=== PATIENT | female | born 1955 | race Caucasian/White ===

== ENCOUNTER 2020-04-12 14:25 | Inpatient (IN) | payer OTHER ==
[~2020-04-12] VITALS: Ht 165.1 cm; Wt 88.0 kg
[2020-04-12] MEDS ORDERED: ALDACTONE25 MG (15:29)
[2020-04-12] MEDS ORDERED: SYNTHROID125 MCG (15:29)
[2020-04-12] MEDS ORDERED: PLAVIX75 MG (15:29)
[2020-04-12] MEDS ORDERED: LIPITOR40 MG (15:30)
[2020-04-12] MEDS ORDERED: ECOTRIN81 MG (15:30)
[2020-04-12] MEDS ORDERED: DIOVAN160 M1 (15:30)
[2020-04-12] MEDS ORDERED: CARVEDILOL25 MG (15:30)
[2020-04-12] MEDS ORDERED: APRESOLINE 10MG10 MG (15:31)
[2020-04-12] MEDS ORDERED: METFORMIN HCL500 M3 (15:31)
== END 2020-04-20 22:29 | disposition home or self-care (01) | DRG 638 ==
LOC: ER 14:25 → MEDJ 04-13 14:41
PROVIDERS: ADMIT Internal Medicine; ATTEND Internal Medicine
DX: E11.00 Type 2 diabetes mellitus with hyperosmolarity without nonketotic hyperglycemic-hyperosmolar coma (NKHHC) (principal); I50.22 Chronic systolic (congestive) heart failure; N17.8 Other acute kidney failure; I25.10 Atherosclerotic heart disease of native coronary artery without angina pectoris; N18.9 Chronic kidney disease, unspecified; E86.0 Dehydration; E11.21 Type 2 diabetes mellitus with diabetic nephropathy; I11.0 Hypertensive heart disease with heart failure; Z95.810 Presence of automatic (implantable) cardiac defibrillator; Z79.4 Long term (current) use of insulin

== ENCOUNTER 2024-03-04 05:32 | Inpatient (IN) | payer OTHER ==
[~2024-03-04] VITALS: Ht 165.1 cm; Wt 97.5 kg
[~2024-03-04 05:32] MED LIST: ALDACTONE25 MG; APRESOLINE 10MG10 MG; CARVEDILOL25 MG; DIOVAN160 M1; ECOTRIN81 MG; LIPITOR40 MG; METFORMIN HCL500 M3; PLAVIX75 MG; SYNTHROID125 MCG
[2024-03-04] MEDS ORDERED: SPIRONOLACTONE25 MG PO (06:01)
[2024-03-04] MEDS ORDERED: LASIX20 MG PO (06:01)
[2024-03-04] MEDS ORDERED: LANTUS SOL100 UNIT/1 SUBCUTANEO (06:01)
[2024-03-04] MEDS ORDERED: HUMALOG100 UNIT/2 SUBCUTANEO (06:02)
--- NOTE | 2024-03-04 06:19 | NUR ---
SE RECIBE PTE FEMENINA ALERTA Y ORIENTADA EN LAS JUSTO ESFERAS REFIETRE ACITE, DOLOR ABDOMINAL EN LLQ Y NAUSEAS DESDE EL LUPE DE SUZE. PTE EN TRIAGE CON BP MANUAL 90/56MMG, SE REALIZA EKG, SE PRESENTA A MD DE TURNO. SE UBICA EN AREA DE OBSERVACION.
[2024-03-04] MEDS ORDERED: FUROsemide 20 MG/2 ML VIAL IV STA (06:31)
[2024-03-04] MEDS ORDERED: METOCLOPRAMIDE HCL 5 MG/ML VIAL IM STA (06:33)
--- NOTE | 2024-03-04 06:37 | NUR ---
FEMINA EVALUADA POR DR GIRON. RN SARAH BETH ORIENTA A PACIENTE SOBRE TRATAMIENTO MEDICO. SE COLECTAN MUESTRAS DE LABORATORIO BAJO MEDIDAS ASEPTICAS. SE CANALIZA A PACIENTE Y SE ADMINISTRAN MEDICAMENTOS ZAIRA ORDEN MEDICA. SE NOTIFICA X-RAY.
[2024-03-04] MEDS ORDERED: METOCLOPRAMIDE HCL 5 MG/ML VIAL ONE (06:40)
--- NOTE | 2024-03-04 07:10 | NUR ---
SE RECIBE PACIENTE ALERTA Y ORIENTADA X3. LA MISMA EN DESCANSO EN CAMA CON LAS CABECERAS A 45 GRADOS CON LAS BARANDAS ELEVADAS Y FRENOS PUESTOS. LA MISMA CON S/L EN LADO DERECHO # 20 PATENTE Y LINO DE DOLOR EN ESPERA DE RESULTADOS DE LABORATORIOS
[2024-03-04 07:21] LABS: HEMATOCRIT 38.4 % (36.0-45.00); HEMOGLOBIN 12.5 g/dL (12.0-15.00); MEAN CORPUSCULAR HEMOGLOBIN 29.9 pg (27.00-32.0); MEAN CORPUSCULAR HGB CONC 32.5 g/dl (32.0-36.0); PLATELET COUNT 132 K/uL (150-450); RED BLOOD COUNT 4.17 M/uL (4.00-6.00); RED CELL DISTRIBUTION WIDTH 19.3 % (11.5-14.5)
[2024-03-04 07:37] LABS: INR 1.36; PARTIAL THROMBOPLASTIN TIME 27.3 SECONDS (22.0-34.0); PROTHROMBIN TIME 14.5 SECONDS (9.0-11.5)
[2024-03-04 07:45] LABS: ALBUMIN 3.2 gm/dL (3.4-5.0); BILIRUBIN TOTAL 1.65 mg/dL (0.3-1.2); CALCIUM 9.2 mg/dL (8.5-10.1); CREATININE SERUM 2.96 mg/dL (0.55-1.02); GFR 15.76; GLOBULINA 3.6 G/DL (2.4-3.5); POTASSIUM 3.73 mEq/L (3.5-5.1); TOTAL PROTEIN 6.8 gm/dL (6.4-8.2); URIC ACID 9.2 mg/dL (2.5-7.5)
[2024-03-04 08:25] LABS: URINE APPEARANCE Cloudy; URINE BILIRRUBIN Small (NEGATIVE); URINE BLOOD Negative; URINE COLOR Dark Yellow; URINE GLUCOSE Negative (NEGATIVE); URINE KETONE Trace (NEGATIVE); URINE LEUKOCYTE Moderate; URINE NITRATE Negative; URINE PROTEIN Trace (NEGATIVE)
[2024-03-04 08:29] LABS: URINE EPITHELIAL CELLS 108.6 uL (0.0-38.8); URINE RBC 15.5 uL (0.0-20.8); URINE WBC 306.5 uL (0.0-23.2)
[2024-03-04 08:33] LABS: URINE BACTERIA > 9821.5 uL (0.0-1933)
[2024-03-04 09:21] LABS: URINE YEAST FEW /hpf
[2024-03-04 13:47] LABS: ALT/SGPT 18 U/L (12-78); AST/SGOT 19 U/L (15-37); LDH 221 U/L (84-246); PHOSPHOKINASE CREATININE 48 U/L (26-192)
[2024-03-04] MEDS ORDERED: FUROsemide 20 MG/2 ML VIAL IV SCH (15:23)
[2024-03-04] MEDS ORDERED: INSULIN LISPRO 1,000 UNIT/10 ML UNITS SUBCUTANEO PRN (15:30)
[2024-03-04] MEDS ORDERED: 0.9 % SODIUM CHLORIDE 1,000 ML IV SCH (15:30)
[2024-03-04] MEDS ORDERED: DEXTROSE 50 % IN WATER 0.5 G/ML DISP.SYRIN IV PRN (15:30)
[2024-03-04] MEDS ORDERED: CARVEDILOL 12.5 MG TABLET PO SCH (15:41)
[2024-03-04] MEDS ORDERED: SPIRONOLACTONE 25 MG TABLET PO SCH (15:41)
[2024-03-04] MEDS ORDERED: CLOPIDOGREL BISULFATE 75 MG TABLET PO SCH (15:44)
[2024-03-04 16:10] LABS: INR 1.41
[2024-03-04 16:16] LABS: ALBUMIN 3.2 gm/dL (3.4-5.0); CALCIUM 9.4 mg/dL (8.5-10.1); CHOL HDL RATIO 3.7 (0-5.0); CREATININE SERUM 2.97 mg/dL (0.55-1.02); GFR 15.7; MAGNESIUM 2.8 mg/dL (1.8-2.4); PHOSPHOROUS 4.3 mg/dL (2.5-4.9); URIC ACID 9.3 mg/dL (2.5-7.5)
[2024-03-04 16:36] LABS: POTASSIUM 3.84 mEq/L (3.5-5.1)
[2024-03-04] MEDS ORDERED: FAMOTIDINE/PF 20 MG/2 ML VIAL ONE (16:49)
[2024-03-04] MEDS ORDERED: FUROsemide 20 MG/2 ML VIAL ONE (16:49)
[2024-03-04] MEDS ORDERED: FAMOTIDINE/PF 20 MG in 0.9 % SODIUM CHLORIDE 100 ML IV SCH (17:00)
[2024-03-04 17:38] VITALS: BP 104/50; O2SAT 100
[2024-03-04] MEDS ORDERED: IPRATROPIUM BROMIDE 0.5 MG/2.5 ML AMPUL.NEB IH STA (19:35)
[2024-03-04] MEDS ORDERED: IPRATROPIUM BROMIDE 0.5 MG/2.5 ML AMPUL.NEB IH SCH (21:00)
[2024-03-04] MEDS ORDERED: CIPROFLOXACIN IN 5 % DEXTROSE 200 ML IV SCH (21:00)
[2024-03-04 21:45] VITALS: BP 86/58; O2SAT 100
[2024-03-05] VITALS (7 sets, daily range): BP systolic 116–147; BP diastolic 68–86; O2SAT 95–100
[2024-03-05] MEDS ORDERED: LEVOTHYROXINE SODIUM 125 MCG TABLET PO SCH (06:00)
[2024-03-05] MEDS ORDERED: GUAIFENESIN 200 MG/10 ML BLIST.PACK PO SCH (08:08)
[2024-03-05] MEDS ORDERED: CEFTRIAXONE SODIUM 2,000 MG in 0.9 % SODIUM CHLORIDE 100 ML IV SCH (17:00)
[2024-03-05] MEDS ORDERED: DIPHENHYDRAMINE HCL 50 MG/ML VIAL 1ML IV SCH (17:15)
[2024-03-06] VITALS (7 sets, daily range): BP systolic 109–137; BP diastolic 67–90; O2SAT 97–100
[2024-03-06] MEDS ORDERED: FUROsemide 20 MG/2 ML VIAL IV SCH (09:00)
[2024-03-06] MEDS ORDERED: AMIODARONE HCL 200 MG TABLET PO SCH (09:00)
[2024-03-06 14:47] LABS: HEMATOCRIT 36.1 % (36.0-45.00); HEMOGLOBIN 11.9 g/dL (12.0-15.00); MEAN CELL VOLUME 92.6 fL (80.00-100.00); MEAN CORPUSCULAR HEMOGLOBIN 30.4 pg (27.00-32.0); MEAN CORPUSCULAR HGB CONC 32.8 g/dl (32.0-36.0); RED CELL DISTRIBUTION WIDTH 19.1 % (11.5-14.5)
[2024-03-06 14:52] LABS: PLATELET COUNT 122 K/uL (150-450)
[2024-03-06 15:00] LABS: ALBUMIN 3.1 gm/dL (3.4-5.0); CREATININE SERUM 2.69 mg/dL (0.55-1.02); GFR 17.6; PHOSPHOROUS 3.9 mg/dL (2.5-4.9); POTASSIUM 4.14 mEq/L (3.5-5.1)
[2024-03-07] VITALS (8 sets, daily range): BP systolic 94–119; BP diastolic 50–73; O2SAT 94–100
[2024-03-08 00:16] VITALS: O2SAT 100
[2024-03-08 00:31] VITALS: BP 133/88; O2SAT 99
[2024-03-08 04:40] VITALS: O2SAT 95
[2024-03-08 08:00] VITALS: BP 117/74; O2SAT 100
[2024-03-08 12:25] LABS: URINE APPEARANCE Clear; URINE BILIRRUBIN Negative (NEGATIVE); URINE BLOOD Trace; URINE COLOR Dark Yellow; URINE GLUCOSE Negative (NEGATIVE); URINE KETONE Negative (NEGATIVE); URINE LEUKOCYTE Moderate; URINE NITRATE Negative; URINE PROTEIN Negative (NEGATIVE)
[2024-03-08 12:29] LABS: URINE BACTERIA 211.6 uL (0.0-1933); URINE CAST 6.25 uL (0.0-1.40); URINE EPITHELIAL CELLS 79.9 uL (0.0-38.8); URINE WBC 77.3 uL (0.0-23.2)
[2024-03-08 13:13] LABS: URINE YEAST MODERATE /hpf
[2024-03-08] MEDS ORDERED: FAMOTIDINE/PF 20 MG/2 ML VIAL ONE (16:46)
[2024-03-08] MEDS ORDERED: CEFTRIAXONE SODIUM 2,000 MG VIAL ONE (16:46)
[2024-03-08 17:00] VITALS: BP 110/67; O2SAT 100
[2024-03-08] MEDS ORDERED: ACETAMINOPHEN 500 MG GEL..CAP PO PRN (17:30)
[2024-03-09] VITALS (9 sets, daily range): BP systolic 95–116; BP diastolic 58–69; O2SAT 95–99
[2024-03-09] MEDS ORDERED: FAMOTIDINE/PF 20 MG/2 ML VIAL ONE (07:12)
[2024-03-09] MEDS ORDERED: IPRATROPIUM BROMIDE 0.5 MG/2.5 ML AMPUL.NEB IH SCH (09:00)
[2024-03-09] MEDS ORDERED: METHYLPREDNISOLONE SOD SUCC 40 MG VIAL IV SCH (09:00)
[2024-03-09] MEDS ORDERED: CEFTRIAXONE SODIUM 2,000 MG VIAL ONE (16:06)
[2024-03-10] VITALS (8 sets, daily range): BP systolic 115–126; BP diastolic 71–78; O2SAT 98–100
[2024-03-10 05:56] LABS: ALBUMIN 3.1 gm/dL (3.4-5.0); BILIRUBIN TOTAL 1.41 mg/dL (0.3-1.2); CALCIUM 9.2 mg/dL (8.5-10.1); CREATININE SERUM 3.2 mg/dL (0.55-1.02); GFR 14.4; GLOBULINA 3.3 G/DL (2.4-3.5); POTASSIUM 4.64 mEq/L (3.5-5.1); TOTAL PROTEIN 6.4 gm/dL (6.4-8.2)
[2024-03-10 06:26] LABS: HEMATOCRIT 36.1 % (36.0-45.00); MEAN CELL VOLUME 92.7 fL (80.00-100.00); MEAN CORPUSCULAR HGB CONC 33.4 g/dl (32.0-36.0); PLATELET COUNT 130 K/uL (150-450); RED BLOOD COUNT 3.89 M/uL (4.00-6.00); RED CELL DISTRIBUTION WIDTH 19.6 % (11.5-14.5)
[2024-03-10] MEDS ORDERED: IPRATROPIUM BROMIDE 0.5 MG/2.5 ML AMPUL.NEB IH SCH (17:00)
[2024-03-11 01:34] VITALS: O2SAT 100
[2024-03-11 02:13] VITALS: BP 93/59
[2024-03-11 03:29] LABS: ABG PO2 70.6 mmHg (80-100); BASE EXCESS -11.6 mmol/l; BICARBONATE 21.3 mmol/l (23-25); SaO2 80.3 %; Tco2 23.9 mmol/l
[2024-03-11 03:48] VITALS: O2SAT 0
[2024-03-11] MEDS ORDERED: SODIUM BICARBONATE 50MEQ/50ML VIAL IV ONE (03:50)
[2024-03-11] MEDS ORDERED: DOPamine HCL 400MG/D5w 250ML PLAST..BAG IV ONE (03:50)
[2024-03-11 03:52] LABS: ABG PH 7.016 (7.35-7.45); ABG pCO2 84.9 mmHg (35-45); allen test SATISFACTORY; o2 100 %; puncture site RADIAL RIGHT
[2024-03-11 03:53] LABS: ALBUMIN 3.3 gm/dL (3.4-5.0); BILIRUBIN TOTAL 1.56 mg/dL (0.3-1.2); CALCIUM 8.8 mg/dL (8.5-10.1); CREATININE SERUM 3.56 mg/dL (0.55-1.02); GFR 12.74; GLOBULINA 3.8 G/DL (2.4-3.5); POTASSIUM 3.85 mEq/L (3.5-5.1); TOTAL PROTEIN 7.1 gm/dL (6.4-8.2)
[2024-03-11] MEDS ORDERED: FUROsemide 20 MG/2 ML VIAL IV SCH (09:00)
== END 2024-03-11 07:42 | disposition expired | DRG 291 ==
LOC: ER 05:33 → SURG 15:41 → SEC-K 15:41 → O/R 16:38 → SEC-K 16:39 → SURG 18:33 → MEDI 03-10 14:47
PROVIDERS: Emergency Medicine; General Practice; ADMIT Internal Medicine; ATTEND Internal Medicine
PROC: BW28ZZZ Computerized Tomography (CT Scan) of Head (ICD-10-PCS; principal; 2024-03-04)
PROC: B24BZZZ Ultrasonography of Heart with Aorta (ICD-10-PCS; 2024-03-05)
PROC: 4A12X4Z Monitoring of Cardiac Electrical Activity, External Approach (ICD-10-PCS; 2024-03-05)
DX: I13.0 Hypertensive heart and chronic kidney disease with heart failure and stage 1 through stage 4 chronic kidney disease, or unspecified chronic kidney disease (principal); I50.23 Acute on chronic systolic (congestive) heart failure; L97.919 Non-pressure chronic ulcer of unspecified part of right lower leg with unspecified severity; N39.0 Urinary tract infection, site not specified; L97.929 Non-pressure chronic ulcer of unspecified part of left lower leg with unspecified severity; I42.9 Cardiomyopathy, unspecified; I50.82 Biventricular heart failure; B96.20 Unspecified Escherichia coli [E. coli] as the cause of diseases classified elsewhere; E03.9 Hypothyroidism, unspecified; E11.22 Type 2 diabetes mellitus with diabetic chronic kidney disease; N18.9 Chronic kidney disease, unspecified; Z79.4 Long term (current) use of insulin; E78.5 Hyperlipidemia, unspecified; I25.10 Atherosclerotic heart disease of native coronary artery without angina pectoris; N18.30 Chronic kidney disease, stage 3 unspecified; L08.9 Local infection of the skin and subcutaneous tissue, unspecified; B95.61 Methicillin susceptible Staphylococcus aureus infection as the cause of diseases classified elsewhere; E11.51 Type 2 diabetes mellitus with diabetic peripheral angiopathy without gangrene; J45.909 Unspecified asthma, uncomplicated